=== PATIENT | female | born 1990 | race Caucasian/White ===

== ENCOUNTER 2016-11-15 15:08 | Outpatient (CLI) | payer MEDICAID ==
[~2016-11-15] VITALS: Ht 154.9 cm; Wt 93.2 kg
[~2016-11-15 15:08] MED LIST: ACET500C5 PO; CEPH-443 PO
[2016-11-15 15:26] VITALS: Ht 154.9 cm; Wt 93.2 kg
[2016-11-15 15:27] VITALS: BP 118/66; PULSE 129; RESP 22
[2016-11-15] MEDS ORDERED: LACTATED RINGER'S 1,000 ML IV* SCH (16:30)
[2016-11-15 16:45] LABS: ADD SCAN DIFF NO
[2016-11-15 16:50] LABS: BASOPHILS % 0.2 % (0.0-2.0); EOSINOPHILS % 0.5 % (0.0-7.0); HEMATOCRIT 33.6 % (37.0-47.0); HEMOGLOBIN 10.9 g/dl (12.0-16.0); LYMPHOCYTES # 1.2 10^3/ul (0.8-2.9); LYMPHOCYTES % 15.1 % (15.0-51.0); MEAN CORPUSCULAR HEMOGLOBIN 27.9 pg (29.0-33.0); MEAN CORPUSCULAR HGB CONC 32.4 g/dl (32.0-37.0); MEAN CORPUSCULAR VOLUME 86.2 fl (82.0-101.0); MEAN PLATELET VOLUME 11.8 fl (7.4-10.4); MONOCYTE # 1.1 10^3/ul (0.3-0.9); MONOCYTES % 13.6 % (0.0-11.0); NEUTROPHIL # 5.5 10^3/ul (1.6-7.5); NEUTROPHILS % 68.6 % (39.0-77.0); NUCLEATED RED BLOOD CELLS% 0.2 /100WBC (0.0-0.0); PLATELET COUNT 215 10^3/UL (140-415); RED CELL DISTRIBUTION WIDTH 13.7 % (11.5-14.5)
[2016-11-15] MEDS ORDERED: GUAIFENESIN 20 MG/ML 5ML CUP PO ONE (17:30)
[2016-11-15] MEDS ORDERED: ACETAMINOPHEN 325 MG TAB PO ONE (17:30)
--- NOTE | 2016-11-15 18:04 | RADRPT ---
PROCEDURE: US OB biophysical profile. CLINICAL INDICATION: 26-year-old female with live IUP. TECHNIQUE: Multiple sonographic images of the pelvis were obtained. The images were reviewed on a PACS workstation. COMPARISON: Pelvic sonogram 06/30/2016. FINDINGS: Cardiac activity is present with 146.25 beats per minute. There is a transverse lie with the head toward the maternal right presentation. The placenta is grade 1-2 fundal placenta.. Amniotic fluid index: 16.9. This is normal. Biophysical profile: movement 2/2 tone 2/2. breathing 2/2 NINI 2/2 Total 04/24 IMPRESSION: 1. Normal biophysical profile. 2. Amniotic fluid index 16.9 7 cm. . Physician Jasmyn Date Time Electronically viewed and signed by Physician Jasmyn on 11/15/2016 18:04 /
--- NOTE | 2016-11-15 18:21 | TRIAGE ---
OB Triage Datetime Report Generated by CPN: 11/15/2016 18:20 Datetime: 11/15/2016 17:30 Stage of : OB Triage Maternal Assessment Level of Consciousness: Fully Conscious Labor Evaluation Frequency: NONE Monitor Mode: External Resting Tone [place]: Relaxed Heart Rate FHR Baseline Rate: 125 Monitor Mode: External US Variability: Moderate 6-25 bpm Accelerations: 15X15 Decelerations: Variable Pain Assessment Pain Scale: 3 Pain Presence: Constant Pain Type: Ache Pain Location: Abdomen Pain Goal: 3 Pain Relief Measures: Comfort Measures Vaginal Exam Membrane Status: Intact Vaginal Bleeding: None Datetime: 11/15/2016 16:30 Stage of : OB Triage Maternal Assessment Level of Consciousness: Fully Conscious Labor Evaluation Frequency: IRREGULAR Monitor Mode: External Duration (sec)2399: 30-50 Quality: Mild Resting Tone [place]: Relaxed Heart Rate FHR Baseline Rate: 145 Monitor Mode: External US Variability: Moderate 6-25 bpm Accelerations: 15X15 Decelerations: None Pain Assessment Pain Scale: 3 Pain Presence: Constant Pain Type: Ache Pain Location: Abdomen Pain Goal: 3 Pain Relief Measures: Comfort Measures Vaginal Exam Membrane Status: Intact Vaginal Bleeding: None Datetime: 11/15/2016 15:24 Assessment Type: Triage Maternal Assessment Level of Consciousness: Fully Conscious DTR's/Clonus: DTRs 2+; No Clonus Headache: Denies Blurred Vision: No Respiratory Effort: Unlabored; Regular Rhythm; Equal Expansion Breath Sounds, Left: Clear and Equal Breath Sounds, Right: Clear and Equal Nausea/Vomiting: Denies RUQ Epigastric Pain: Denies Lower Extremities Edema: None Degree: None Upper Extremities Edema: None Degree: None Facial Edema: None Fall Risk Assessment History of Falling: (0) No Secondary Diagnosis: (0) No Ambulatory Aid: (0) Bedrest/Nurse Assist IV Therapy: (0) No Gait: (0) Normal/Bedrest/Immobile Mental Status: (0) Oriented to Own Ability Fall Score: 0 Fall Risk Score Definition: No Risk: No action required Datetime: 11/15/2016 15:22 Time of Arrival: 11/15/2016 15:02 EGA: 32.2 Arrived By: Ambulatory Arrived From: Office Chief Complaint: pt sent in for eval. of maternal tachycardia Movement: Present Contractions: Denies/Absent Rupture of Membranes: Denies Vaginal Bleeding: None Vaginal Discharge: Denies Recent Sexual Intercouse: Denies Abdominal Trauma: Not Applicable Patient Complaints: None Additional Patient Complaints: PT C/O OF FLU LIKE SYMPTOMS X 1 WEEK Provider Notified: SOLANGE Initial Plan: BPP, EKG, CBC, TYLENOL, ROBITUSSIN, IV HYDRATION
--- NOTE | 2016-11-17 13:39 | RADRPT ---
Vent Rate: 124 bpm RR Interval: 0 msec VA Interval: 136 msec QRS Duration: 72 msec QT Interval: 298 msec QTC Interval: 428 msec P-R-T [place]: 64 - 64 - 33 degrees Sinus tachycardia Otherwise normal ECG Electronically Signed By: Quintin Borrero [id number]
== END 2016-11-15 18:29 | disposition home or self-care (01) ==
LOC: L-D 15:08 → OBT 15:08
PROVIDERS: ATTEND Obstetrics & Gynecology
DX: O26.893 Other specified pregnancy related conditions, third trimester (principal); R00.0 Tachycardia, unspecified; O76 Abnormality in fetal heart rate and rhythm complicating labor and delivery; Z3A.32 32 weeks gestation of pregnancy
CPT/HCPCS: 36415; 76818; 85025; 93005; 96360; 96361; J7120; Z7500; Z7610; G0463

== ENCOUNTER 2017-01-08 10:00 | Inpatient (IN) | payer MEDICAID ==
[~2017-01-08] VITALS: Ht 157.5 cm; Wt 98.7 kg
[2017-01-08] MEDS ORDERED: LIDOCAINE 1% (MPF) 30 ML INJ INJ PRN (17:00)
[2017-01-08] MEDS ORDERED: AMPICILLIN 2 GM/NS (PMX) 100 ML IV ONE (17:00)
[2017-01-08] MEDS ORDERED: OXYTOCIN 30 UNITS/LR 500 ML IV SCH ×2 (17:00)
[2017-01-08] MEDS ORDERED: OXYTOCIN 30 UNITS/LR 500 ML IV PRN (17:00)
[2017-01-08] MEDS ORDERED: METHYLERGONOVINE 0.2 MG INJ IM PRN (17:00)
[2017-01-08] MEDS ORDERED: MISOPROSTOL 200 MCG TAB PR PRN (17:00)
[2017-01-08] MEDS ORDERED: BUTORPHANOL 2 MG INJ IV PRN (17:00)
[2017-01-08] MEDS ORDERED: IBUPROFEN 600 MG TAB PO PRN (17:00)
[2017-01-08] MEDS ORDERED: CARBOPROST 250 MCG INJ IM PRN (17:00)
[2017-01-08 17:31] VITALS: Ht 157.5 cm; Wt 98.7 kg
[2017-01-08 17:32] VITALS: BP 123/78; PULSE 100
[2017-01-08] MEDS: LACTATED RINGER'S 1,000 ML IV SCH (17:47)
[2017-01-08] MEDS ORDERED: DINOPROSTONE 10 MG VAG SUPP VAG ONE (18:30)
[2017-01-08 18:42] LABS: ADD SCAN DIFF NO
[2017-01-08 18:45] LABS: BASOPHILS % 0.3 % (0.0-2.0); EOSINOPHILS # 0.1 10^3/ul (0.0-0.5); EOSINOPHILS % 0.8 % (0.0-7.0); HEMATOCRIT 34.9 % (37.0-47.0); HEMOGLOBIN 11.2 g/dl (12.0-16.0); LYMPHOCYTES # 1.8 10^3/ul (0.8-2.9); LYMPHOCYTES % 23.5 % (15.0-51.0); MEAN CORPUSCULAR HEMOGLOBIN 27.2 pg (29.0-33.0); MEAN CORPUSCULAR HGB CONC 32.1 g/dl (32.0-37.0); MEAN CORPUSCULAR VOLUME 84.7 fl (82.0-101.0); MEAN PLATELET VOLUME 12.5 fl (7.4-10.4); MONOCYTE # 0.7 10^3/ul (0.3-0.9); MONOCYTES % 8.8 % (0.0-11.0); NEUTROPHILS % 66.2 % (39.0-77.0); PLATELET COUNT 225 10^3/UL (140-415); RED BLOOD COUNT 4.12 10^6/ul (4.20-5.40); RED CELL DISTRIBUTION WIDTH 16.6 % (11.5-14.5); WHITE BLOOD COUNT 7.5 10^3/ul (4.8-10.8)
[2017-01-08 18:57] LABS: INR 0.96; PROTIME 12.8 Sec (12.2-14.2)
[2017-01-08 18:58] LABS: PARTIAL THROMBOPLASTIN TIME 26.9 Sec (25.0-35.0)
[2017-01-08] MEDS ORDERED: LACTATED RINGER'S 1,000 ML IV PRN (19:00)
--- NOTE | 2017-01-08 19:53 | HP ---
Date/Time of Note Date/Time of Note DATE: 01/08/17 TIME: 19:51 OB - History Hx of Present Free Text/Dictation admitted for elective induction Last Menstrual Period: Apr 03, 2016 Estimated Due Date: Jan 08, 2017 : 1 Para: 0 Care: Good Care Ultrasounds: Normal mid trimester US Obstetrical Complications: None Medical Complications: None Past Family/Social History * Past Medical, Surgical, Family and Obstetric Histories reviewed from chart. Blood Type: O+ Rubella: immune RPR/VDRL: Negative GBS Status: Positive HBsAG: Negative OB Admission Exam Vital Signs Vital Signs Vital Signs Date Time Temp Pulse Resp B/P Pulse Ox O2 Delivery O2 Flow Rate FiO2 01/08/17 17:32 98.7 100 123/78 Room Air Physical Exam HEENT: WNL Heart: Rhythm Normal Lungs: Clear, Equal Abdomen: WNL Extremities: Normal Reflexes: Normal Cervical Dilatation: None Effacement: 0% Station: -3 Membranes: Intact Heart Rate: 130's Accelerations: Accelerations Present Decelerations: No Decelerations Varibility: Marked Contractions on Admission: None Last 72 hours Lab Results CBC & BMP 01/08/17 18:30 OB Assessment/Plan Other Assessment: elective induction at term Induction Method: per Misoprostol Protocol DOMINGUEZ LOPEZ MD Jan 08, 2017 19:53
[2017-01-08] MEDS ORDERED: MINERAL OIL LIGHT 10 ML VIAL TOP ONE (20:00)
[2017-01-08] MEDS: AMPICILLIN 1 GM/NS (PMX) 50 ML IV SCH (22:18)
[2017-01-09] MEDS: AMPICILLIN 1 GM/NS (PMX) 50 ML IV SCH ×6 (02:21→21:05)
[2017-01-09] MEDS: LACTATED RINGER'S 1,000 ML IV SCH ×4 (02:22→19:46)
--- NOTE | 2017-01-09 19:34 | PN ---
Date/Time of Note Date/Time of Note DATE: 01/09/17 TIME: 19:33 OB Subjective Subjective Subjective C/O minima contractions OB Objective Objective Objective VSS P/E unchanged Cx: long ? 1 cm posterior OB Assessment/Plan Reason for admission: induction of labor Induction Method: per Misoprostol Protocol DOMINGUEZ LOPEZ MD Jan 09, 2017 19:34
[2017-01-10] MEDS: AMPICILLIN 1 GM/NS (PMX) 50 ML IV SCH ×6 (01:06→21:00)
[2017-01-10] MEDS ORDERED: DINOPROSTONE 10 MG VAG SUPP VAG ONE (04:00)
[2017-01-10] MEDS: LACTATED RINGER'S 1,000 ML IV SCH ×2 (05:04→16:32)
[2017-01-10] MEDS ORDERED: FENTAnyl 2MCG/ML-ROPIV 0.2% 100 ML ONE (12:10)
[2017-01-10] MEDS ORDERED: NALBUPHINE HCL (10 MG/1 ML) INJ IV PRN (13:30)
[2017-01-10] MEDS ORDERED: ONDANSETRON 4 MG INJ IV PRN (13:30)
[2017-01-10] MEDS ORDERED: NALOXONE (0.4 MG/ML) INJ IV PRN (13:30)
[2017-01-10] MEDS ORDERED: FENTAnyl 2MCG/ML-ROPIV 0.2% 100 ML BAG EPI SCH (13:30)
[2017-01-10] MEDS ORDERED: OXYTOCIN 30 UNITS/LR 500 ML IV SCH (16:30)
--- NOTE | 2017-01-10 16:57 | RADRPT ---
PROCEDURE: US OB. CLINICAL INDICATION: Induction. TECHNIQUE: Multiple sonographic images of the pelvis were obtained. The images were reviewed on a PACS workstation. COMPARISON: No prior studies are available for comparison. FINDINGS: The cervical length is not evaluated. There is a single viable intrauterine gestation. Cardiac activity is present with 143 beats per min raheel. There is a cephalic presentation. Measurements were made in order to determine age. The results are as follows: BPD =9.1 cm36 weeks 5 days plus or minus 3 weeks 1 day. HC =33.2 [id number] 6 days plus or minus 2 weeks 5 days. AC =34 cm37 weeks 5 days plus or minus 3 weeks 0 days. FL =7.7 cm39 weeks 3 days plus/minus 3 weeks 1 day. . Estimated gestational age of approximately 38 weeks 0 days plus or minus 2 weeks 5 days. . The estimated date of delivery is 01/24/2017.. The EFW = 3362 g plus or minus 504 g. . anatomy is not evaluated. The placenta is left bundle grade 2 placenta.. There is no evidence for an abruption or placenta pre via. Amniotic fluid is reduced. Lead no hydramnios. There are no adnexal masses.. IMPRESSION: 1. Oligohydramnios. 2. A single viable intrauterine gestation is identified presenting in a cephalic lie with a heart r ate of 142 beats per minute. RPTAT:AAJJ Physician Jasmyn Date Time Electronically viewed and signed by Physician Jasmyn on 01/10/2017 16:57 MARLEE/
--- NOTE | 2017-01-10 18:11 | PN ---
Date/Time of Note Date/Time of Note DATE: 01/10/17 TIME: 18:10 OB Subjective Subjective Subjective Has epidural : OB Objective Objective Objective FHTs stable Cx: C 5-6 -1 station OB Assessment/Plan Reason for admission: active labor, induction of labor Induction Method: per Pitocin Protocol DOMINGUEZ LOPEZ MD Jan 10, 2017 18:11
[2017-01-10] MEDS ORDERED: MINERAL OIL LIGHT 10 ML VIAL TOP ONE (18:30)
--- NOTE | 2017-01-10 21:39 | LDN ---
Date/Time of Note Date/Time of Note DATE: 01/10/17 TIME: 21:37 Delivery Summary of a viable over intact perineum Weeks of Gestation 40 Placenta Delivered: Spontaneously, Intact & Complete Meconium: none Episiotomy: No Laceration repair: small vaginal and hymennal laceration was repaired wit 2 0 Vicryl Anesthesia type: Epidural Estimated blood loss: 300 Sponge & Needle done & correct: Yes All needle counts correct: Yes Any foreign bodies felt in the: No Problems: Delivery Information Sex Sex: male Apgars 1 Minute: 9 5 Minute: 9 Suctioning Nose & mouth suctioned at vadim: Yes Delee suction performed: No Umbilical Cord Umbilical cord with: 3 Vessels Cord presentations: no nuchal cord Cord Blood was obtained: Yes Mother & Baby Disposition Disposition Mom & Baby to Maternity; Good: Yes (mother and baby were recovered in good condition ) Mom transferred to: Other (maternity ) Baby to NICU: No DOMINGUEZ LOPEZ MD Jan 10, 2017 21:39
--- NOTE | 2017-01-10 22:30 | DELSUM ---
Delivery Summary A-C Datetime Report Generated by N: 01/10/2017 22:30 DELIVERY PERSONNEL Retail Sales Teammate: Reeves, Martha MATERNAL INFORMATION Delivery Anesthesia: Epidural Medications in Delivery: 30 UNITS OXYTOCIN IN 500 ML LR Estimated Blood Loss (ml): 300 Placenta Cultured: No Maternal Complications: None LABOR SUMMARY EDC: 01/08/2017 00:00 No. Babies in Womb: 1 Attempted: No Labor Anesthesia: Epidural LABOR INFORMATION Reason for Induction: Postterm Onset of Labor: 01/10/2017 10:02 (Annotations: Data stored by [facility] on behalf of user) Complete Dilatation: 01/10/2017 18:53 Cervical Ripening Agents: Cervidil Cervical Ripening Agents: Cervidil (Annotations: REMOVED 24 HR POST PLACEMENT) Cervical Ripening Agents: Cervidil Cervical Ripening Agents: Cervidil Cervical Ripening Agents: Cervidil Cervical Ripening Agents: Cervidil Cervical Ripening Agents: Cervidil Cervical Ripening Agents: Cervidil Cervical Ripening Agents: Cervidil Cervical Ripening Agents: Cervidil (Annotations: IN PLACE FOR 24 HR-PLACED 01/08 @ 1815) Cervical Ripening Agents: Cervidil Group B Beta Strep: Positive Antibiotics # of Doses: 13 Antibiotics Time of Last Dose: 01/10/2017 16:32 Steroids Given: None Reason Steroids Not Administered: Not Applicable MEMBRANES Membranes Rupture Method: Artificial Rupture of Membranes: 01/10/2017 10:02 Length of Rupture (hr): 11.40 Amniotic Fluid Color: Clear Amniotic Fluid Amount: Moderate Amniotic Fluid Odor: None STAGES OF LABOR Stage 1 hr: 8 Stage 1 min: 51 Stage 2 hr: 2 Stage 2 min: 33 Stage 3 hr: 0 Stage 3 min: 3 Total Time in Labor hr: 11 Total Time in Labor min: 27 VAGINAL DELIVERY Episiotomy: None Laceration Extension: First Degree Laceration Type: Perineal Laceration Repair: Yes Initial Vag Sponge Count: 10 Final Vag Sponge Count: 10 Initial Vag Sharps Count: 1 Final Vag Sharps Count: 2 Sponge Count Correct: Yes Sharps Count Correct: Yes BABY A INFORMATION Delivery Date/Time: 01/10/2017 21:26 Method of Delivery: Vaginal Born in Route : No : N/A Forceps: N/A Vacuum Extraction: N/A Shoulder Dystocia : N/A SHOULDER DYSTOCIA BABY A Delivery Date/Time: 01/10/2017 21:26 PRESENTATION/POSITION BABY A Presentation: Cephalic Cephalic Presentation: Vertex Breech Presentation: N/A PLACENTA INFORMATION BABY A Placenta Delivery Time : 01/10/2017 21:29 Placenta Method of Delivery: Expressed Placenta Status: Delivered SCORES BABY A Heart Rate 1 min: >100 bpm Resp Effort 1 min: Good Cry Reflex Irritability 1 min: Cough/Sneeze/Pulls Away Muscle Tone 1 min: Active Motion Color 1 min: Body [place], Extremit Blue Resuscitation Effort 1 min: Tactile Stimulation SCORE 1 MIN: 9 Heart Rate 5 min: >100 bpm Resp Effort 5 min: Good Cry Reflex Irritability 5 min: Cough/Sneeze/Pulls Away Muscle Tone 5 min: Active Motion Color 5 min: Body [place], Extremit Blue Resuscitation Effort 5 min: Tactile Stimulation SCORE 5 MIN: 9 INFORMATION BABY A Gestational Age at Delivery: 40.2 Gestational Status: Full Term- 39- 40.6 Weeks Infant Outcome : Liveborn Condition : Stable Sex: Male IDENTIFICATION/MEDS BABY A ID Band Number: [id number] ID Band Location: Right Leg; Left Arm Sensor Number: [id number] Sensor Location : Cord Clamp Vitamin K Given : Not Given Erythromycin Given: Not Given WEIGHT/LENGTH BABY A Infant Birthweight (gm): 3095 Infant Weight (lb): 6 Weight (oz): 13 Length (in): 18.75 Infant Length (cm): 47.63 CORD INFORMATION BABY A No. Cord Vessels: 3 Nuchal Cord : N/A Cord Blood Taken: Yes Suction: Mouth; Nose ASSESSMENT BABY A Infant Complications: None Physical Findings at Delivery: Within Normal Limits Respirations: Appears Normal Entry Level Manager/ALS Called : No Care By: Heladio GUILLEN Transferred To: Remains with Mother
[2017-01-11] VITALS (8 sets, daily range): BP systolic 104–136; BP diastolic 51–67; PULSE 86–115; RESP 17–18
[2017-01-11] MEDS ORDERED: LANOLIN 7 GM TUBE TOP PRN
[2017-01-11] MEDS ORDERED: WITCH HAZEL/GLYCERIN PAD PR PRN
[2017-01-11] MEDS ORDERED: METHYLERGONOVINE 0.2 MG INJ IM PRN
[2017-01-11] MEDS ORDERED: ACETAMINOPHEN/CODEINE #3 TAB PO PRN ×2
[2017-01-11] MEDS ORDERED: DIBUCAINE 1% 30 GM OINT PR PRN
[2017-01-11] MEDS ORDERED: BENZOCAINE 20% 56 ML SPRAY TOP PRN
[2017-01-11] MEDS ORDERED: MISOPROSTOL 200 MCG TAB PR PRN
[2017-01-11] MEDS ORDERED: ZOLPIDEM 5 MG TAB PO PRN
[2017-01-11] MEDS ORDERED: OXYTOCIN 30 UNITS/LR 500 ML IV PRN
[2017-01-11] MEDS ORDERED: CARBOPROST 250 MCG INJ IM PRN
[2017-01-11] MEDS: IBUPROFEN 600 MG TAB PO SCH ×5 (00:43→23:25)
[2017-01-11] MEDS: CEPHALEXIN 500 MG CAP PO SCH ×5 (00:44→23:25)
[2017-01-11] MEDS: LACTATED RINGER'S 1,000 ML IV* SCH ×3 (02:47→15:54)
[2017-01-11 08:03] LABS: ADD SCAN DIFF NO
[2017-01-11 08:09] LABS: BASOPHILS % 0.2 % (0.0-2.0); EOSINOPHILS # 0.1 10^3/ul (0.0-0.5); EOSINOPHILS % 0.5 % (0.0-7.0); HEMATOCRIT 31.6 % (37.0-47.0); HEMOGLOBIN 9.8 g/dl (12.0-16.0); LYMPHOCYTES # 2.4 10^3/ul (0.8-2.9); LYMPHOCYTES % 18.7 % (15.0-51.0); MEAN CORPUSCULAR HEMOGLOBIN 26.3 pg (29.0-33.0); MEAN CORPUSCULAR VOLUME 84.9 fl (82.0-101.0); MEAN PLATELET VOLUME 12.3 fl (7.4-10.4); MONOCYTES % 7.7 % (0.0-11.0); NEUTROPHIL # 9.1 10^3/ul (1.6-7.5); NEUTROPHILS % 72.4 % (39.0-77.0); PLATELET COUNT 178 10^3/UL (140-415); RED BLOOD COUNT 3.72 10^6/ul (4.20-5.40); RED CELL DISTRIBUTION WIDTH 17.2 % (11.5-14.5); WHITE BLOOD COUNT 12.6 10^3/ul (4.8-10.8)
[2017-01-11] MEDS: MAGNESIUM HYDROXIDE 30ML CUP PO SCH ×2 (09:03→21:30)
[2017-01-11] MEDS: SENNA/DOCUSATE NA (8.6MG/50MG) TAB PO SCH ×2 (09:04→21:30)
--- NOTE | 2017-01-11 14:20 | DS ---
Date/Time of Note Date/Time of Note home next day DATE: 01/11/17 TIME: 14:19 Obstetrical Discharge Record Final Diagnosis Final Diagnosis: Term delivered Vaginal Delivery Obstetrical Delivery: Spontaneous, Laceration, Repaired Complications Augmentation: Yes Induction: Yes Condition on Discharge Physical Assessment Last Vitals: see nurses notes Voiding: Yes Bowel Movement: Yes Breast: Soft, non-tender, Filling Fundus: Firm Abdomen and Incision: soft BS + Episiotomy: NA Calf Tenderness: No Patient Condition: Good DOMINGUEZ LOPEZ MD Jan 11, 2017 14:20
[2017-01-11] MEDS ORDERED: IBUP-1542 PO (14:22)
--- NOTE | 2017-01-11 14:22 | PD.PPDC ---
[facility] Discharge Instruction Provider Information Physician Information 26 y/o female had vagina; delivery Diagnosis Final Diagnosis: S/P vaginal delivery Condition Patient Condition: Good Diet Diet: Resume Regular Diet Activity/Restrictions Activity: Normal Activity May Shower Restrictions: Nothing in the Vagina Return to Work or School: Feb 26, 2017 Follow-up Follow-up with Physician: 4, Week/Weeks (in clinic) Return to clinic for OB Instructions: Breast Tenderness Depression DOMINGUEZ LOPEZ MD Jan 11, 2017 14:21
[2017-01-12 04:00] VITALS: BP 102/59; PULSE 85; RESP 18
[2017-01-12] MEDS: IBUPROFEN 600 MG TAB PO SCH ×2 (05:25→12:30)
[2017-01-12] MEDS: CEPHALEXIN 500 MG CAP PO SCH ×2 (05:25→12:30)
[2017-01-12 08:30] VITALS: BP 102/58; PULSE 80; RESP 18
[2017-01-12] MEDS ORDERED: MEASLES,MUMPS,RUBELLA VACCINE INJ SC* ONE (09:00)
[2017-01-12] MEDS ORDERED: DIPHTH/TET/ACEL PERTUSS (ADULT) 0.5 ML VIAL IM* ONE (09:00)
[2017-01-12] MEDS ORDERED: VARICELLA VACCINE LIVE/PF 1,350 UNIT/0.5 ML ML SC* ONE (09:00)
[2017-01-12] MEDS: SENNA/DOCUSATE NA (8.6MG/50MG) TAB PO SCH (10:13)
[2017-01-12] MEDS: MAGNESIUM HYDROXIDE 30ML CUP PO SCH (10:13)
== END 2017-01-12 16:32 | disposition home or self-care (01) | DRG 775 ==
LOC: L-D 16:33 → PP1 01-11 00:09
PROVIDERS: ADMIT Obstetrics & Gynecology; ATTEND Obstetrics & Gynecology
PROC: 10E0XZZ Delivery of Products of Conception, External Approach (ICD-10-PCS; principal; 2017-01-10)
PROC: 0UQGXZZ Repair Vagina, External Approach (ICD-10-PCS; 2017-01-10)
PROC: 3E033VJ Introduction of Other Hormone into Peripheral Vein, Percutaneous Approach (ICD-10-PCS; 2017-01-10)
DX: O71.4 Obstetric high vaginal laceration alone (principal); Z37.0 Single live birth; Z3A.40 40 weeks gestation of pregnancy
CPT/HCPCS: 62319; 76815; 85025; 85610; 85730; 86592; 86900; 86901; 87340; 90715; 90716; J0290; J2590; J3010; J7120

== ENCOUNTER 2017-06-08 22:36 | Emergency (ER) | payer MEDICAID ==
[~2017-06-08] VITALS: Ht 152.4 cm; Wt 74.5 kg
[~2017-06-08 22:36] MED LIST changes: -ACET500C5 PO; -CEPH-443 PO; +IBUP-1542 PO
[2017-06-08 22:41] VITALS: Ht 152.4 cm; Wt 74.5 kg
[2017-06-09] MEDS ORDERED: IBUP400T22 PO (00:15)
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
--- NOTE | 2017-06-09 00:51 | RADRPT ---
PROCEDURE: Chest. CLINICAL INDICATION: Chest pain. TECHNIQUE: Single frontal view of the chest was obtained. COMPARISON: None. FINDINGS: The cardiac silhouette is within normal limits. The aortic arch is unremarkable. There is no focal consolidation, vascular congestion or pleural effusion. There is no pneumothorax. IMPRESSION: No evidence for active cardiopulmonary disease. .Steve Good MD, MD Date Time Electronically viewed and signed by .Steve Good MD, on 06/09/2017 00:51 .T/
[2017-06-09 01:12] VITALS: BP 121/72; PULSE 73; RESP 16; TEMP 98.2
== END 2017-06-09 01:04 | disposition home or self-care (01) ==
LOC: FTE 22:36
DX: R07.1 Chest pain on breathing (principal)
CPT/HCPCS: 71010; Z7502

== ENCOUNTER 2018-10-06 10:12 | Emergency (ER) | payer MEDICAID ==
[~2018-10-06] VITALS: Ht 160 cm; Wt 84.1 kg
[~2018-10-06 10:12] MED LIST changes: +IBUP-1561 PO
[2018-10-06 10:15] VITALS: BP 130/66; PULSE 101; RESP 18; Ht 160 cm; Wt 84.1 kg
[2018-10-06] MEDS ORDERED: IBUP800T48 PO (10:49)
[2018-10-06] MEDS ORDERED: ACET500C5 PO (10:49)
[2018-10-06] MEDS ORDERED: PROM6.2515 PO (10:49)
[2018-10-06] MEDS ORDERED: PSEU-79 PO (10:49)
--- NOTE | 2018-10-06 15:16 | ERD ---
ER Documentation Chief Complaint Chief Complaint cough & congestion 2 wks HPI 28-year-old female presenting with cough and congestion times 2 weeks. She has not taken any medications for her symptoms. Denies other medical problems. States she has a mild runny nose with mild sore throat. Positive sick contacts at home. Up-to-date on vaccinations. Surgical history denies. Social history denies ROS All systems reviewed and are negative except as per history of present illness. Medications Home Meds Active Scripts Promethazine Hcl* (Promethazine Hcl* Syrup) 6.25 Mg/5 Ml Syrup, 6.25 MG PO Q6H PRN for COUGH, #100 ML Prov:SARINA EDWARD PA-C 10/06/18 Pseudoephedrine Hcl* (Suphedrin*) 30 Mg Tablet, 30 MG PO Q6 PRN for CONGESTION, #30 TAB Prov:SARINA EDWARD PA-C 10/06/18 Acetaminophen* (Tylophen*) 500 Mg Capsule, 2 CAP PO Q8H PRN for PAIN AND OR ELEVATED TEMP, #20 CAP Prov:SARINA EDWARD PA-C 10/06/18 Ibuprofen* (Motrin*) 800 Mg Tab, 800 MG PO Q6, #30 TAB Prov:SARINA EDWARD PA-C 10/06/18 Ibuprofen* (Motrin*) 400 Mg Tab, 400 MG PO Q6, #30 TAB Prov:YANA YOUNGBLOOD PA-C 06/09/17 Ibuprofen* (Ibuprofen*) 600 Mg Tablet, 600 MG PO Q6, #20 TAB 0 Refills Prov:DOMINGUEZ LOPEZ MD 01/11/17 Allergies Allergies: Coded Allergies: No Known Allergy (Unverified , 06/08/17) PMhx/Soc History of Surgery: No Anesthesia Reaction: No Hx Neurological Disorder: No Hx Respiratory Disorders: No Hx Cardiac Disorders: No Hx Psychiatric Problems: No Hx Miscellaneous Medical Probl: No Hx Alcohol Use: No Hx Substance Use: No Hx Tobacco Use: No Smoking Status: Never smoker FmHx Family History: No diabetes, No coronary disease, No other Physical Exam Vitals Vital Signs Date Temp Pulse Resp B/P (MAP) Pulse Ox O2 O2 Flow FiO2 Time Delivery Rate 10/06/18 97.5 101 18 130/66 97 10:15 (87) Physical Exam GENERAL: The patient is well-appearing, well-nourished, in no acute distress HEENT: Atraumatic. Conjunctivae are pink. Pupils equal, round, and reactive to light. There is no scleral icterus. Tympanic membranes clear bilaterally. Oropharynx clear. NECK: C-spine is soft and supple. There is no meningismus. There is no cervical lymphadenopathy. CHEST: Clear to auscultation bilaterally. There are no rales, wheezes or rhonchi. HEART: Regular rate and rhythm. No murmurs, clicks, rubs or gallops. Procedures/MDM MDM: 28-year-old female presenting with URI symptoms. I have low suspicion for pneumonia. I have low suspicion for bacterial HEENT infection. I have low suspicion for meningitis or sepsis. Patient is discharged with supportive medications and told to follow-up with primary care within 1-2 days for close evaluation. I do not feel that antibiotics are indicated. All questions answered at discharge Departure Diagnosis: Primary Impression: Cough Condition: Stable Patient Instructions: Cough, Chronic, Uncertain Cause, (Adult) Referrals: [facility] YOU HAVE RECEIVED A MEDICAL SCREENING EXAM AND THE RESULTS INDICATE THAT YOU DO NOT HAVE A CONDITION THAT REQUIRES URGENT TREATMENT IN THE EMERGENCY DEPARTMENT. FURTHER EVALUATION AND TREATMENT OF YOUR CONDITION CAN WAIT UNTIL YOU ARE SEEN IN YOUR DOCTORS OFFICE WITHIN THE NEXT 1-2 DAYS. IT IS YOUR RESPONSIBILITY TO MAKE AN APPOINTMENT FOR FOLOW-UP CARE. IF YOU HAVE A PRIMARY DOCTOR --you should call your primary doctor and schedule an appointment IF YOU DO NOT HAVE A PRIMARY DOCTOR YOU CAN CALL OUR PHYSICIAN REFERRAL HOTLINE AT IF YOU CAN NOT AFFORD TO SEE A PHYSICIAN YOU CAN CHOSE FROM THE FOLLOWING [facility] [address] [facility]. [facility] [address] [facility] [facility] [address] [facility] [address] [facility]. [facility] [address] [facility]. [facility]. [address] Additional Instructions: FOLLOW UP WITH YOUR PRIMARY CARE PHYSICIAN TOMORROW.Return to this facility if you are not improving as expected. SARINA EDWARD PA-C Oct 06, 2018 15:16
== END 2018-10-06 10:59 | disposition home or self-care (01) ==
LOC: FTE 10:12
DX: R05 Cough (principal)
CPT/HCPCS: 99282